=== PATIENT | female | born 1990 | race Caucasian/White ===

== ENCOUNTER 2025-02-25 08:32 | Day surgery (SDC) | payer OTHER ==
[2025-02-22 14:12] VITALS: BMI 42.2
[2025-02-25] MEDS ORDERED: Lidocaine 1% PF 5 ML VIAL ONE (09:40)
[2025-02-25] MEDS ORDERED: PROPOFOL 0 ML ONE (09:40)
[2025-02-25] MEDS ORDERED: Rocuronium Bromide 10 MG/ML (10ML VIAL) ONE (09:40)
[2025-02-25] MEDS ORDERED: CEFAZOLIN 2 GM VIAL ONE (10:09)
[2025-02-25] MEDS ORDERED: Bupivacaine/Epinephrine 0.25% 30 ML VIAL ONE (10:10)
[2025-02-25] MEDS ORDERED: PROPOFOL 20 ML ONE (10:51)
[2025-02-25] MEDS ORDERED: Ondansetron PF 4 MG/2 ML Vial ONE (11:04)
[2025-02-25] MEDS ORDERED: SUGAMMADEX SODIUM 200 MG/2 ML VIAL ONE (11:04)
[2025-02-25] MEDS ORDERED: Ketorolac Tromethamine 30 MG (1 mL) VIAL ONE (11:04)
[2025-02-25] MEDS ORDERED: HYDROcodone/Acetaminophen 5/325 mg Tablet ONE (12:07)
== END 2025-02-25 12:29 | disposition home or self-care (01) ==
LOC: CSHSDC 08:32
PROVIDERS: ATTEND Surgery
PROC: 0FT44ZZ Resection of Gallbladder, Percutaneous Endoscopic Approach (ICD-10-PCS; principal; 2025-02-25)
DX: K80.12 Calculus of gallbladder with acute and chronic cholecystitis without obstruction (principal); F17.200 Nicotine dependence, unspecified, uncomplicated; E66.9 Obesity, unspecified; Z68.41 Body mass index [BMI] 40.0-44.9, adult; Z87.59 Personal history of other complications of pregnancy, childbirth and the puerperium
CPT/HCPCS: 47562; C9776; 36416; 88304; C1889; J1100; J1885; J2405; J2704; J3010; S2900